=== PATIENT | female | born 1995 | race Caucasian/White ===

== ENCOUNTER 2024-06-18 22:14 | Emergency (ER) | payer OTHER, SELFPAY ==
[2024-06-18 22:19] VITALS: BP 157/103
--- NOTE | 2024-06-19 00:01 | ED.GENMED ---
History of Present Illness
General
Chief Complaint: Crisis Evaluation
Source: patient
Exam Limitations: none
Time Seen by Provider: 06/18/24 23:25
Nursing documentation reviewed up to this point in time: agreed with
History of Present Illness
History of Present Illness:
This is a 29-year-old woman who has history of anxiety/depression and prior history of alcohol abuse, substance use disorder/cocaine abuse.
Has been sober from alcohol since April 2020 and has been sober from cocaine use since November 2023.
She relocated to [facility] from [place] December 2023 as she admitted that she needed to distance herself from previous drug addiction acquaintances.
She has remained sober, works full-time at a restaurant and had been following with a therapist weekly but due to scheduling issues and insurance changes she had a brief lapse in counseling for perhaps a month, resumed counseling last week with a
follow-up appointment scheduled for June 23.
She had been maintained on multiple different psychiatric medications which she ran out of November/December of this year due to relocating from [place] to [place] and thus far has not established with a psychiatrist nor PCP since her relocation.
She admits to increased stress, anxiety but reports remaining sober. She does admit brief thoughts of suicide earlier today but no definitive plan. She reached out to a cousin who resides locally who has brought her to the ED for further
evaluation.
She does admit to feeling markedly improved since chatting with her cousin and states suicidal thoughts were brief, have since resolved. No previous episodes of suicide attempt.
She has been evaluated by [facility]. At this point patient seems very insightful, intuitive and there appears no indication for inpatient psychiatric treatment at this point.
She will be staying with her cousin milagros and will be provided with outpatient resources including resources for intensive outpatient program which she can call and schedule intake evaluation tomorrow.
Past History
Past History
ED Past Medical History: Psychiatric
ED Past Surgical History: Tonsilectomy
Social History
Tobacco: Non-smoker
Alcohol: Former (Has been sober since 2019)
Drug: Former user (Sober from cocaine use since November 2023)
Personal: Single
Living: alone
Employment: Employed
Family History
Family History: Other (Noncontributory)
Phy Exam
Physical Exam
Physical Exam:
GENERAL: 29-year-old female appears her stated age, bright and alert, pleasant, appears in no acute distress. Normal speech pattern. Maintains eye contact.
EYE: pupils equal and reactive. anicteric
NECK: Supple, nontender, no meningismus, no significant adenopathy.
ENT: oral mucosa is moist. No rhinorrhea.
CARDIAC: Regular rate and rhythm. no murmur.
LUNGS: Clear breath sounds bilaterally, no acute respiratory distress, no wheezes/rales/rhonchi
ABDOMEN: Soft, nondistended, without focal tenderness
NEUROLOGICAL: Alert and oriented x3, no focal neuro deficits. Gait is payne and steady.
SKIN: Warm and dry, normal color, skin intact. No rash.
MUSCULOSKELETAL: No C/C/E. peripheral pulses are full and equal b/l. No palpable tenderness.
PSYCH: Admits to mild to moderately increased stress with brief thoughts of suicide earlier today which have since dissipated. Good insight and judgment. Has good social supports, cousin is accompanying her and will stay with her cousin milagros.
Prior history of alcohol, cocaine use but reports maintaining sobriety since November 2023.
She is goal oriented, future oriented.
Course
Orders/Labs/Results
Orders:
Orders
06/18/24 22:17
Crisis Consult Urgent
Reason for Consult: depression, si
Vital Signs
Initial and Last Documented VS:
Initial Vital Signs
Temp Pulse Resp BP Pulse Ox
98.2 F 92 16 157/103 100
06/18/24 22:19 06/18/24 22:19 06/18/24 22:19 06/18/24 22:19 06/18/24 22:19
Last Documented Vital Signs
Temp Pulse Resp BP Pulse Ox
98.2 F 88 16 121/78 98
06/18/24 22:19 06/19/24 00:09 06/18/24 22:19 06/19/24 00:09 06/19/24 00:09
MDM/Problems Addressed
Differential Diagnosis Includes:
Patient presents voluntarily for evaluation of increasing stress, anxiety and brief thoughts of suicide earlier today which had since resolved.
She has social support, a cousin who is accompanying and whom she will be residing with [facility].
Prior history of alcohol and drug use but has remained sober since November 2023.
Previously prescribed multiple different psychiatric medications including Seroquel, Abilify, gabapentin, trazodone, lamotrigine, propranolol, Lexapro, hydroxyzine. Patient states many of these medications were discontinued for others. Has been
off all of these medicines since December 2023.
She does admit that trazodone was helpful for sleep. She also admits that as needed hydroxyzine was helpful for anxiety.
She has been evaluated by [facility]. Patient appears safe to be discharged to home. Will be staying with a cousin.
She has been referred to intensive outpatient program and has intake/contact information which she plans to call tomorrow.
I have offered a short course of trazodone to take at bedtime for as needed sleep and have also offered prescription for a few hydroxyzine tablets which she can take for as needed anxiety.
As patient plans to follow-up with outpatient psychiatric treatment, at this point we will hold off on initiation of an SSRI or other medication as our plan is for prompt outpatient psychiatric services.
I have encouraged her to reach out/promptly return if her symptoms worsen if she develops recurrent suicidal thoughts, etc.
Patient is agreeable with this plan and appreciative of our assistance.
Chronic conditions affecting care: Psychiatric illness
Acute Exacerbation and/or Progression of Chronic Illness: Psychiatric illness
*Pulse Oximetry
Patient hypoxic: no
*Critical Care Note
Total Time (30-74mins, 75-104mins- exclusive of procedures): Not Applicable
ED Attending Note
-
Portions of this chart may have been created with voice recognition software.� Occasional wrong word or��sound alike� substitutions may have occurred due to the inherent limitations of voice recognition software.
Discharge Plan
Departure
Patient Disposition: Home (Routine Discharge)
Date of Disposition: 06/19/24
Time of Disposition: 00:01
Patient with high blood pressure during this ER visit?: Yes
Condition: Good
Discharge Problem:
Generalized anxiety disorder with panic attacks
Instructions: Depression, Adult (DC), Anxiety, Adult (DC), BLOOD PRESSURE
Prescriptions:
New
trazodone 100 mg tablet
100 mg PO HS PRN (Reason: Sleep) Qty: 14 0RF
hydroxyzine HCl 25 mg tablet
25 mg PO TID PRN (Reason: anxiety) Qty: 14 0RF
Referrals:
[facility] [Provider Group] - Call in 1-3 days for appt
[facility] [Active] - As needed
Interventions
Interventions:
*Risk Screen - Suicide Last Done: 06/18/24 22:16
*General Assessment Last Done: 06/19/24 00:20
*Neglect/Abuse Screening Last Done: 06/18/24 22:19
*ED COVID-19 Vaccine History Last Done: 06/19/24 00:14
*Nursing Disposition Last Done: 06/19/24 00:40
ED-Psychological Assessment Last Done: 06/19/24 00:10
Discharge Date and Time
Discharge Date/Time: 06/19/24 00:41
Print Language: CITIZ[place]
[2024-06-19 00:09] VITALS: BP 121/78
== END 2024-06-19 00:41 | disposition home or self-care (01) ==
LOC: EMR 22:14
PROVIDERS: EMERGENCY PHYSICIAN Emergency Medicine
DX: F41.1 Generalized anxiety disorder (principal); F41.0 Panic disorder [episodic paroxysmal anxiety]; F14.10 Cocaine abuse, uncomplicated
CPT/HCPCS: 99282